=== PATIENT | female | born 1940 | race Two or more races ===

== ENCOUNTER → 2017-06-14 | Outpatient (CLI) | payer OTHER ==
[~2017-06-14] MED LIST: ALEVE220 M1 PO; BENTYL10 MG/ML IM; CELEXA PO; DUI500 PO; NEURONTIN300 MG PO; PERCOCET 5-3251 EACH PO; RANITIDINE HCL300 M1 PO; SYNTHROID50 MCG PO; XARELTO10 MG PO
== END | disposition home or self-care (01) ==
LOC: TOM 13:36
DX: M25.551 Pain in right hip (principal)

== ENCOUNTER 2017-06-18 06:37 | Day surgery (SDC) | payer OTHER ==
[~2017-06-18 06:37] MED LIST changes: -ALEVE220 M1 PO; -DUI500 PO; -PERCOCET 5-3251 EACH PO; -XARELTO10 MG PO
[2017-06-18] MEDS ORDERED: PERCOCET 5-3251 EACH PO (11:31)
[2017-06-18] MEDS ORDERED: DUI500 PO (11:31)
[2017-06-18] MEDS ORDERED: ALEVE220 M1 PO (11:31)
[2017-06-18] MEDS ORDERED: XARELTO10 MG PO (11:47)
== END 2017-06-18 18:00 | disposition home or self-care (01) ==
LOC: CIR.AMB 06:37
DX: S82.841A Displaced bimalleolar fracture of right lower leg, initial encounter for closed fracture (principal); S90.5 Other superficial injuries of ankle; S92.144A Nondisplaced dome fracture of right talus, initial encounter for closed fracture; S93.421A Sprain of deltoid ligament of right ankle, initial encounter

== ENCOUNTER → 2019-07-16 | Outpatient (CLI) | payer OTHER ==
[~2019-07-16] MED LIST changes: +ALEVE220 M1 PO; +DUI500 PO; +PERCOCET 5-3251 EACH PO; +XARELTO10 MG PO
== END | disposition home or self-care (01) ==
LOC: SONOGRAMA 07:48
DX: E04.2 Nontoxic multinodular goiter (principal)